=== PATIENT | male | born 1970 | race Two or more races ===

== ENCOUNTER 2024-01-02 13:18 | Emergency (ER) | payer OTHER ==
[~2024-01-02] VITALS: Ht 162.6 cm; Wt 148.7 kg
[2024-01-02 15:07] VITALS: BP 160/84; PULSE 90; RESP 16; TEMP 98; O2SAT 97
[2024-01-02] MEDS ORDERED: IBUP-1455 PO (16:12)
[2024-01-02] MEDS: IBUPROFEN 800 MG TAB PO ONE (16:41)
== END 2024-01-02 16:48 | disposition home or self-care (01) ==
LOC: ER 13:18
DX: M25.562 Pain in left knee (principal); I10 Essential (primary) hypertension; Z79.899 Other long term (current) drug therapy; W01.0XXA Fall on same level from slipping, tripping and stumbling without subsequent striking against object, initial encounter; Y93.89 Activity, other specified; Y92.89 Other specified places as the place of occurrence of the external cause; Y99.0 Civilian activity done for income or pay
CPT/HCPCS: 73562